=== PATIENT | male | born 1980 | race Caucasian/White ===

== ENCOUNTER 2018-12-05 09:00 | Outpatient (CLI) | payer OTHER | END 2018-12-05 15:00 | disposition home or self-care (01) | LOC: LAB 09:00 | DX: J11.1 Influenza due to unidentified influenza virus with other respiratory manifestations (principal); R53.81 Other malaise ==

== ENCOUNTER 2018-12-06 07:55 | Outpatient (CLI) | payer OTHER | END 2018-12-06 08:01 | disposition home or self-care (01) | LOC: LAB 07:55 | DX: J11.1 Influenza due to unidentified influenza virus with other respiratory manifestations (principal) ==